=== PATIENT | female | born 1965 | race Caucasian/White ===

== ENCOUNTER 2018-09-02 00:41 | Emergency (ER) | payer BC ==
[~2018-09-02] VITALS: Ht 167.6 cm; Wt 89.8 kg
[2018-09-02 00:46] VITALS: Ht 167.6 cm; Wt 89.8 kg
[2018-09-02 02:32] VITALS: BP 142/90
== END 2018-09-02 02:32 | disposition home or self-care (01) ==
LOC: ED 00:41
DX: S61.213A Laceration without foreign body of left middle finger without damage to nail, initial encounter (principal); E03.9 Hypothyroidism, unspecified; W26.8XXA Contact with other sharp object(s), not elsewhere classified, initial encounter; Y93.89 Activity, other specified; Y92.89 Other specified places as the place of occurrence of the external cause; Y99.8 Other external cause status
CPT/HCPCS: 90715; J2001

== ENCOUNTER 2018-09-02 18:56 | Emergency (ER) | payer BC ==
[~2018-09-02] VITALS: Ht 167.6 cm; Wt 89.8 kg
[2018-09-02 19:16] VITALS: Ht 167.6 cm; Wt 89.8 kg
[2018-09-02 22:00] VITALS: BP 124/78
== END 2018-09-02 22:00 | disposition home or self-care (01) ==
LOC: ED 18:56
DX: S61.412D Laceration without foreign body of left hand, subsequent encounter (principal); E03.9 Hypothyroidism, unspecified; Z98.890 Other specified postprocedural states; X58.XXXD Exposure to other specified factors, subsequent encounter